=== PATIENT | female | born 1990 | race Caucasian/White ===

== ENCOUNTER 2021-10-03 05:43 | Inpatient (IN) | payer OTHER ==
[~2021-10-03] VITALS: Ht 175.3 cm; Wt 113.9 kg
[~2021-10-03 05:43] MED LIST: MACROBID 100 M100 MG PO
[2021-10-03 06:31] LABS: HEMOGLOBIN 10.6 gm/dl (12.3-15.3); RED BLOOD COUNT 3.55 M/UL (4.00-5.10); WHITE BLOOD COUNT 13.2 K/UL (4.5-11.0)
[2021-10-03] MEDS ORDERED: DOCUSATE SODIU100 MG PO (12:32)
[2021-10-03] MEDS ORDERED: HYDROCODON-ACE1 EAC4 PO (12:32)
[2021-10-03] MEDS ORDERED: IBUPROFEN600 MG PO (12:32)
[2021-10-04 06:23] LABS: HEMOGLOBIN 9.6 gm/dl (12.3-15.3)
[2021-10-05] MEDS ORDERED: FERROUS SULFAT325 MG PO (10:09)
[2021-10-05] MEDS ORDERED: LABETALOL HCL100 MG PO (16:08)
== END 2021-10-05 17:09 | disposition home or self-care (01) | DRG 787 ==
LOC: OB 05:43
PROVIDERS: Obstetrics & Gynecology; ADMIT Obstetrics & Gynecology
PROC: 3E0234Z Introduction of Serum, Toxoid and Vaccine into Muscle, Percutaneous Approach (ICD-10-PCS; 2021-10-03)
PROC: 10D00Z1 Extraction of Products of Conception, Low, Open Approach (ICD-10-PCS; principal; 2021-10-03 07:30)
DX: O36.63X0 Maternal care for excessive fetal growth, third trimester, not applicable or unspecified (principal); O98.52 Other viral diseases complicating childbirth; D62 Acute posthemorrhagic anemia; O99.02 Anemia complicating childbirth; O99.344 Other mental disorders complicating childbirth; F32.A Depression, unspecified; Z20.822 Contact with and (suspected) exposure to COVID-19; B00.9 Herpesviral infection, unspecified; Z37.0 Single live birth; Z3A.39 39 weeks gestation of pregnancy; O99.334 Smoking (tobacco) complicating childbirth; F17.200 Nicotine dependence, unspecified, uncomplicated; Z23 Encounter for immunization
CPT/HCPCS: 36415; 81001; 82800; 85014; 85018; 85025; 85461; 86850; 86900; 86901; 90471; 90715; C9113; J0690; J1170; J1200; J2210; J2274; J2370; J2405; J2590; J2790; J3010; U0002